=== PATIENT | female | born 1955 | race African-American/Black ===

== ENCOUNTER 2018-09-19 19:56 | Inpatient (IN) | payer MEDICAID ==
[~2018-09-19] VITALS: Ht 149.9 cm; Wt 38.6 kg
[2018-09-19] MEDS ORDERED: IBUPROFEN 600MG TABLET PO STA (20:54)
[2018-09-19] MEDS ORDERED: ONDANSETRON 4MG ODT PO ONE (21:30)
[2018-09-19 21:52] LABS: CLARITY URINE CLEAR (CLEAR); COLOR URINE YELLOW (YELLOW); KETONES URINE NEGATIVE (NEGATIVE); LEUKOCYTE ESTERASE URINE TRACE (NEGATIVE); NITRITE URINE POSITIVE (NEGATIVE); OCCULT BLOOD URINE NEGATIVE (NEGATIVE); PH URINE 6.5 (4.5-8.0); PROTEIN URINE NEGATIVE (NEGATIVE); SPECIFIC GRAVITY URINE 1.011 (1.005-1.030); UROBILINOGEN URINE 0.2 E.U./dL (0.2-1.0)
[2018-09-19 21:54] LABS: BASOPHILS % 0.6 % (0.0-2.0); EOSINOPHILS % 2.8 % (0.0-5.0); HEMATOCRIT. 33.8 % (36.0-48.0); HEMOGLOBIN. 11.1 g/dL (12.0-16.0); LYMPHOCYTES % 34.6 % (20.0-50.0); MEAN CORPUSCULAR HEMOGLOBIN 30.2 pg (28.0-32.0); MEAN CORPUSCULAR VOLUME 91.8 fL (81.0-99.0); MONOCYTES % 13.4 % (2.0-8.0); NEUTROPHILS % 48.6 % (40.0-76.0); PLATELET 388 x1000/uL (130-400); RED BLOOD CELL COUNT 3.68 mill/uL (4.2-5.4); RED CELL DISTRIBUTION WIDTH 13.5 % (11.6-14.6)
[2018-09-19 21:58] LABS: CHLORIDE 103 mEq/L (98-107)
[2018-09-19 21:59] LABS: PROTHROMBIN TIME 9.9 sec (9.1-11.1)
[2018-09-19 22:05] LABS: *BARBITURATES SCREEN URINE PRESUMTIVE POSITIVE (NEGATIVE); CANNABINOID URINE SCREEN PRESUMTIVE POSITIVE (NEGATIVE); OPIATES URINE SCREEN NEGATIVE (NEGATIVE); PHENCYCLIDINE URINE SCREEN NEGATIVE (NEGATIVE)
[2018-09-19 22:06] LABS: *AMPHETAMINES SCREEN URINE PRESUMTIVE POSITIVE (NEGATIVE); *BENZODIAZEPINES SCREEN URINE NEGATIVE (NEGATIVE); *COCAINE SCREEN URINE PRESUMTIVE POSITIVE (NEGATIVE); METHADONE URINE SCREEN NEGATIVE (NEGATIVE)
[2018-09-19 22:06] LABS: ETHANOL BLOOD 28 mg/dL
[2018-09-19] MEDS ORDERED: LEVOFLOXACIN 750MG PREMIX 150 ML IV ONE (22:45)
[2018-09-20] MEDS ORDERED: LEVOFLOXACIN 500MG PREMIX 100 ML IV SCH
[2018-09-20] MEDS ORDERED: ACETAMINOPHEN 325MG TABLET PO PRN
[2018-09-20] MEDS ORDERED: CLONIDINE 0.1MG TABLET PO PRN
[2018-09-20 01:30] VITALS: BP 114/67
[2018-09-20] MEDS: HYDROMORPHONE HCL/PF 2MG/ML CPJ IV PRN ×4 (02:10→15:55)
[2018-09-20] MEDS: SODIUM CHLORIDE 0.9% 1,000 ML IV SCH ×2 (02:11→17:31)
[2018-09-20] MEDS ORDERED: HYDR-4086 MT (03:40)
[2018-09-20] MEDS ORDERED: ONDA8TAB13 MT (03:40)
[2018-09-20] MEDS ORDERED: PHEN64.8 MT (03:40)
[2018-09-20] MEDS ORDERED: PHEN300C6 MT (03:40)
[2018-09-20] MEDS ORDERED: CALC-3 MT (03:40)
[2018-09-20 04:00] VITALS: BP 123/76
[2018-09-20 07:03] LABS: CHLORIDE 103 mEq/L (98-107)
[2018-09-20 07:18] LABS: CREATINE KINASE 149 IU/L (26-192); CREATINE KINASE MB FRACTION 1.5 ng/mL (0.5-3.6); PHOSPHORUS 3.4 mg/dL (2.5-4.9)
[2018-09-20] MEDS ORDERED: PNEUMOCOCCAL 23-VAL P-SAC VAC 0.5 ML IM ONE (08:00)
[2018-09-20 08:15] VITALS: BP 108/65
[2018-09-20] MEDS ORDERED: ENOXAPARIN 40MG/0.4ML SYR SUBCUT SCH (09:00)
[2018-09-20] MEDS ORDERED: INFLUENZA VIRUS VACCINE(AFLURIA) 0.5ML SYR IM ONE (10:00)
[2018-09-20 12:00] VITALS: BP 113/65
[2018-09-20] MEDS: NICOTINE 21MG PATCH TD SCH (12:25)
[2018-09-20] MEDS ORDERED: ONDANSETRON HCL 4MG/2ML INJ IV PRN ×2 (12:45)
[2018-09-20] MEDS ORDERED: IPRATROPIUM/ALBUTEROL 0.5-3(2.5)MG/3ML NEB HHN PRN (12:45)
[2018-09-20] MEDS: PANTOPRAZOLE SODIUM 40 MG/VIAL IV SCH ×2 (14:30→21:56)
[2018-09-20] MEDS: FOLIC ACID 1MG TABLET PO SCH (14:30)
[2018-09-20] MEDS: MULTIVITAMINS,THER W-MINERALS TABLET PO SCH (14:30)
[2018-09-20] MEDS: THIAMINE HCL 100MG TABLET PO SCH (14:30)
[2018-09-20] MEDS ORDERED: HYDROCODONE/ACETAMINOPHEN 5/325MG TABLET PO PRN (14:45)
[2018-09-20] MEDS: DOCUSATE SODIUM 250MG CAPSULE PO SCH (15:50)
[2018-09-20 16:00] VITALS: BP 117/65
[2018-09-20 17:17] LABS: BASOPHILS % 0.5 % (0.0-2.0); EOSINOPHILS % 3.4 % (0.0-5.0); HEMATOCRIT. 33.7 % (36.0-48.0); LYMPHOCYTES % 32.7 % (20.0-50.0); MEAN CORPUSCULAR HEMOGLOBIN 30.5 pg (28.0-32.0); MEAN CORPUSCULAR VOLUME 93.1 fL (81.0-99.0); MEAN PLATELET VOLUME 7.5 fl (7.4-10.4); MONOCYTES % 10.9 % (2.0-8.0); NEUTROPHILS % 52.5 % (40.0-76.0); PLATELET 371 x1000/uL (130-400); RED BLOOD CELL COUNT 3.62 mill/uL (4.2-5.4); RED CELL DISTRIBUTION WIDTH 13.4 % (11.6-14.6)
[2018-09-20 17:38] LABS: CREATINE KINASE 123 IU/L (26-192); CREATINE KINASE MB FRACTION 1.9 ng/mL (0.5-3.6)
[2018-09-20 18:31] LABS: CARCINO EMBRYONIC ANTIGEN 17.1 ng/ml
[2018-09-20 18:42] LABS: HEPATITIS B SURFACE ANTIGEN NEGATIVE
[2018-09-20 19:10] LABS: HEPATITIS B CORE AB IGM NEGATIVE
[2018-09-20 19:12] LABS: HEPATITIS A AB IGM NEGATIVE (NEGATIVE)
[2018-09-20 20:00] VITALS: BP 131/77
[2018-09-20] MEDS: PHENYTOIN SODIUM EXTENDED 100MG CAPSULE PO SCH (21:56)
[2018-09-20] MEDS: PHENOBARBITAL 60MG TABLET PO SCH (21:57)
[2018-09-20] MEDS: LEVOFLOXACIN 500MG PREMIX 100 ML IV SCH (23:53)
[2018-09-21] MEDS: HYDROMORPHONE HCL/PF 2MG/ML CPJ IV PRN ×4 (00:16→19:54)
[2018-09-21 01:00] VITALS: BP 101/74
[2018-09-21 04:00] VITALS: BP 130/55
[2018-09-21 07:20] LABS: BASOPHILS % 0.4 % (0.0-2.0); EOSINOPHILS % 3.4 % (0.0-5.0); HEMATOCRIT. 31.5 % (36.0-48.0); HEMOGLOBIN. 10.5 g/dL (12.0-16.0); LYMPHOCYTES % 21.2 % (20.0-50.0); MEAN CORPUSCULAR HEMOGLOBIN 30.9 pg (28.0-32.0); MEAN CORPUSCULAR VOLUME 92.4 fL (81.0-99.0); MEAN PLATELET VOLUME 7.6 fl (7.4-10.4); MONOCYTES % 10.8 % (2.0-8.0); NEUTROPHILS % 64.2 % (40.0-76.0); PLATELET 335 x1000/uL (130-400); RED BLOOD CELL COUNT 3.41 mill/uL (4.2-5.4); RED CELL DISTRIBUTION WIDTH 13.3 % (11.6-14.6)
[2018-09-21 07:38] LABS: CHLORIDE 105 mEq/L (98-107)
[2018-09-21 08:00] VITALS: BP 117/82
[2018-09-21] MEDS: PANTOPRAZOLE SODIUM 40 MG/VIAL IV SCH ×2 (08:43→21:30)
[2018-09-21] MEDS: DOCUSATE SODIUM 250MG CAPSULE PO SCH ×2 (08:44→16:50)
[2018-09-21] MEDS: MULTIVITAMINS,THER W-MINERALS TABLET PO SCH (08:44)
[2018-09-21] MEDS: THIAMINE HCL 100MG TABLET PO SCH (08:44)
[2018-09-21] MEDS: FOLIC ACID 1MG TABLET PO SCH (08:44)
[2018-09-21] MEDS: PHENOBARBITAL 60MG TABLET PO SCH ×2 (08:45→21:30)
[2018-09-21] MEDS: NICOTINE 21MG PATCH TD SCH (08:46)
[2018-09-21 12:00] VITALS: BP 122/71
[2018-09-21] MEDS: SODIUM CHLORIDE 0.9% 1,000 ML IV SCH (13:19)
[2018-09-21 16:00] VITALS: BP 103/61
[2018-09-21 20:00] VITALS: BP 135/86
[2018-09-21] MEDS: PHENYTOIN SODIUM EXTENDED 100MG CAPSULE PO SCH (21:30)
[2018-09-21] MEDS: LEVOFLOXACIN 500MG PREMIX 100 ML IV SCH (23:18)
[2018-09-22] VITALS: BP 134/75
[2018-09-22] MEDS: LORAZEPAM 2MG/ML CPJ IV PRN ×2 (01:04→02:57)
[2018-09-22] MEDS: HYDROMORPHONE HCL/PF 2MG/ML CPJ IV PRN ×5 (02:20→23:56)
[2018-09-22 04:00] VITALS: BP 119/73
[2018-09-22 08:00] VITALS: BP 119/69
[2018-09-22] MEDS: NICOTINE 21MG PATCH TD SCH (08:49)
[2018-09-22] MEDS: PANTOPRAZOLE SODIUM 40 MG/VIAL IV SCH ×2 (08:50→20:32)
[2018-09-22] MEDS: FOLIC ACID 1MG TABLET PO SCH (08:51)
[2018-09-22] MEDS: PHENOBARBITAL 60MG TABLET PO SCH ×2 (08:51→20:33)
[2018-09-22] MEDS: SODIUM CHLORIDE 0.9% 1,000 ML IV SCH (08:51)
[2018-09-22] MEDS: MULTIVITAMINS,THER W-MINERALS TABLET PO SCH (08:51)
[2018-09-22] MEDS: THIAMINE HCL 100MG TABLET PO SCH (08:51)
[2018-09-22] MEDS: DOCUSATE SODIUM 250MG CAPSULE PO SCH ×2 (08:52→16:51)
[2018-09-22 12:00] VITALS: BP 116/73
[2018-09-22 13:06] LABS: HIV SCREEN 4G Non Reactive (Non Reactive)
[2018-09-22] MEDS ORDERED: HYDROCODONE/APAP 7.5/325MG 1 TAB TABLET PO PRN (14:00)
[2018-09-22 18:00] VITALS: BP 118/64
[2018-09-22 20:00] VITALS: BP 119/70
[2018-09-22] MEDS: PHENYTOIN SODIUM EXTENDED 100MG CAPSULE PO SCH (20:33)
[2018-09-22] MEDS ORDERED: LEVOFLOXACIN 500MG TABLET PO SCH (21:00)
[2018-09-23] VITALS (13 sets, daily range): BP systolic 113–146; BP diastolic 68–90
[2018-09-23] MEDS: SODIUM CHLORIDE 0.9% 1,000 ML IV SCH (04:53)
[2018-09-23 06:42] LABS: BASOPHILS % 0.9 % (0.0-2.0); HEMOGLOBIN. 10.4 g/dL (12.0-16.0); LYMPHOCYTES % 30.6 % (20.0-50.0); MEAN CORPUSCULAR HEMOGLOBIN 30.8 pg (28.0-32.0); MEAN PLATELET VOLUME 7.3 fl (7.4-10.4); MONOCYTES % 12.5 % (2.0-8.0); PLATELET 400 x1000/uL (130-400); RED BLOOD CELL COUNT 3.37 mill/uL (4.2-5.4); RED CELL DISTRIBUTION WIDTH 13.7 % (11.6-14.6)
[2018-09-23 07:12] LABS: CHLORIDE 106 mEq/L (98-107)
[2018-09-23 07:14] LABS: PHOSPHORUS 2.3 mg/dL (2.5-4.9)
[2018-09-23] MEDS: DOCUSATE SODIUM 250MG CAPSULE PO SCH (09:00)
[2018-09-23] MEDS: THIAMINE HCL 100MG TABLET PO SCH (09:14)
[2018-09-23] MEDS: PANTOPRAZOLE SODIUM 40 MG/VIAL IV SCH (09:14)
[2018-09-23] MEDS: MULTIVITAMINS,THER W-MINERALS TABLET PO SCH (09:14)
[2018-09-23] MEDS: FOLIC ACID 1MG TABLET PO SCH (09:14)
[2018-09-23] MEDS: PHENOBARBITAL 60MG TABLET PO SCH (09:14)
[2018-09-23] MEDS: HYDROMORPHONE HCL/PF 2MG/ML CPJ IV PRN ×2 (09:16→13:34)
[2018-09-23] MEDS: NICOTINE 21MG PATCH TD SCH (09:16)
[2018-09-23] MEDS ORDERED: LIDOCAINE HCL 1% 20ML VIAL (Pyxis) INJ ONE ×2 (10:59→11:44)
[2018-09-23] MEDS ORDERED: SODIUM BICARBONATE 4% (2.4MEQ) 5ML VIAL IV ONE ×2 (11:00→11:43)
[2018-09-23] MEDS ORDERED: FENTANYL CITRATE/PF 50MCG/ML 2ML VIAL ONE (11:43)
[2018-09-23] MEDS ORDERED: FENTANYL CITRATE/PF 50MCG/ML 2ML VIAL IV ONE (12:30)
[2018-09-23 18:05] LABS: HEMATOCRIT 34.1 % (36.0-48.0); HEMOGLOBIN 11.3 g/dL (12.0-16.0)
[2018-09-24 05:24] LABS: CANCER ANTIGEN 125 10.5 U/mL (0.0-38.1)
== END 2018-09-23 17:45 | disposition home or self-care (01) | DRG 720 ==
LOC: ER 19:56 → 6EST 23:01 → ENRESERV 23:11 → CANRESERV 23:11 → ENRESERV 09-20 00:28 → EDBEDREQ 09-20 00:39 → 8WST 09-20 01:33
PROVIDERS: ADMIT Internal Medicine Nephrology; ATTEND Internal Medicine Nephrology
PROC: 0FB13ZX Excision of Right Lobe Liver, Percutaneous Approach, Diagnostic (ICD-10-PCS; principal; 2018-09-23)
DX: A41.9 Sepsis, unspecified organism (principal); R64 Cachexia; E44.0 Moderate protein-calorie malnutrition; K92.2 Gastrointestinal hemorrhage, unspecified; R16.0 Hepatomegaly, not elsewhere classified; K74.60 Unspecified cirrhosis of liver; J44.9 Chronic obstructive pulmonary disease, unspecified; D64.9 Anemia, unspecified; B19.20 Unspecified viral hepatitis C without hepatic coma; N39.0 Urinary tract infection, site not specified; Z53.29 Procedure and treatment not carried out because of patient's decision for other reasons; G40.909 Epilepsy, unspecified, not intractable, without status epilepticus; N20.0 Calculus of kidney; R91.8 Other nonspecific abnormal finding of lung field; F14.10 Cocaine abuse, uncomplicated; F10.10 Alcohol abuse, uncomplicated; F12.10 Cannabis abuse, uncomplicated; F15.10 Other stimulant abuse, uncomplicated; F17.210 Nicotine dependence, cigarettes, uncomplicated; Z59.0 Homelessness; Z85.42 Personal history of malignant neoplasm of other parts of uterus; Z85.41 Personal history of malignant neoplasm of cervix uteri; Z91.19 Patient's noncompliance with other medical treatment and regimen; Z86.73 Personal history of transient ischemic attack (TIA), and cerebral infarction without residual deficits; Z88.0 Allergy status to penicillin; Z88.5 Allergy status to narcotic agent; Z71.6 Tobacco abuse counseling; Z68.1 Body mass index [BMI] 19.9 or less, adult; Z71.51 Drug abuse counseling and surveillance of drug abuser; Z90.49 Acquired absence of other specified parts of digestive tract; Z82.49 Family history of ischemic heart disease and other diseases of the circulatory system
CPT/HCPCS: 36415; 71045; 71250; 74176; 76705; 77012; 80048; 80305; 82105; 82378; 82550; 82553; 83735; 84100; 84484; 85014; 85018; 86301; 86304; 86705; 86709; 86803; 87340; 87389; 88307; 90686; 90732; 96365; 99285; C9113; G0482; J1170; J1650; J1956; J2060; J2405; J3010; J3490; J7030; Q0162